=== PATIENT | female | born 1990 | race Two or more races ===

== ENCOUNTER 2017-09-16 16:00 | Inpatient (IN) | payer MEDICAID ==
[~2017-09-16] VITALS: Ht 157.5 cm; Wt 90.7 kg
[2017-09-16] MEDS ORDERED: LACT. RINGERS/OXYTOCIN 20UNITS 1,000 ML IV SCH (16:49)
[2017-09-16] MEDS ORDERED: DERMOPLAST 60ML BOTTLE TOP PRN (17:00)
[2017-09-16] MEDS ORDERED: WITCH HAZEL-GLYCERIN PAD TOP PRN (17:00)
[2017-09-16] MEDS ORDERED: PHISODERM TOP SOLN 240ML BTL TOP PRN (17:00)
[2017-09-16] MEDS ORDERED: NALBUPHINE HCL 10 MG/1ml INJECTION IV PRN (17:00)
[2017-09-16] MEDS ORDERED: METHYLERGONOVINE MALEATE 0.2 MG/ML AMP IM PRN (17:00)
[2017-09-16] MEDS ORDERED: LIDOCAINE 2% (LOCAL ANESTH.) PF 5ml SDV ID ONE (17:00)
[2017-09-16] MEDS ORDERED: ceFAZolin 1GM/100ML 100 ML IV ONE ×2 (17:15→17:17)
[2017-09-16 17:51] LABS: Basophils # (auto) 0 uL; Eosinophils # (auto) 0.1 uL; Monocytes # (auto) 0.5 uL
[2017-09-16 17:53] LABS: Basophils % (auto) 0.2 % (0.0-2.0); Eosinophils % (auto) 1.6 % (0.0-7.0); Hematocrit 30.3 % (36.0-46.0); Hemoglobin 9.8 g/dL (12.2-16.2); Lymphocytes # (auto) 1.4 uL; Lymphocytes % (auto) 22.2 % (10.0-50.0); Mean Corpuscular Hemoglobin 25.3 pg (28.0-32.0); Mean Corpuscular Hgb Conc. 32.5 g/dL (32.0-36.0); Mean Corpuscular Volume 77.8 fL (80.0-100.0); Monocytes % (auto) 7.9 % (0.0-12.0); Neutrophils # (auto) 4.4 uL; Neutrophils % (auto) 68.1 % (37.0-80.0); Nucleated Red Blood Cells % 0.1 %; Platelet Count (auto) 252 10^3/uL (140-450); Red Blood Cells 3.89 10^6/uL (4.0-5.20); Red Cell Distribution Width 16.3 % (11.8-14.3); White Blood Cell 6.5 10^3/uL (4.4-10.8)
[2017-09-16 18:05] LABS: INR 0.86 (0.9-1.15); Partial Thromboplastin Time 34.8 sec (22.64-33.71); Prothrombin Time 9.4 sec (9.37-12.3)
[2017-09-16 18:07] LABS: Urine Amorphous Crystal FEW /hpf (None Seen); Urine Bacteria NONE SEEN /hpf (None Seen); Urine Blood Negative /uL (Negative); Urine Mucus FEW (None Seen); Urine WBC 17 /hpf (0 - 5)
[2017-09-16 18:10] LABS: Albumin 2.2 g/dL (3.4-5.0); BUN/Creatinine Ratio 20.5; Calcium 8.4 mg/dL (8.5-10.1); Potassium 3.8 mmol/L (3.5-5.1)
[2017-09-16 18:13] LABS: Alcohol, Urine < 3.0 mg/dL (0-5); Amphetamine Screen, Urine POSITIVE (NEGATIVE); Barbiturate Scree,Urine NEGATIVE (NEGATIVE); Benzodiazephine Screen, Urine NEGATIVE (NEGATIVE); Cannabinoid Screen, Urine POSITIVE (NEGATIVE); Cocaine Screen, Urine NEGATIVE (NEGATIVE); Opiate Scree,Urine NEGATIVE (NEGATIVE)
[2017-09-16 18:13] LABS: Bilirubin, Total 0.2 mg/dL (0.2-1.0); Total Protein 6.3 g/dL (6.4-8.2)
[2017-09-16 18:38] LABS: Phencyclidine Screen, Urine NEGATIVE (NEGATIVE)
[2017-09-16] MEDS ORDERED: fentaNYL CITRATE 100 MCG/2 ML VL ONE ×2 (19:11→19:49)
[2017-09-16] MEDS ORDERED: BUPIVACAINE 0.75% INJ 10ML MPV SDV IJ ONE (19:14)
[2017-09-16] MEDS ORDERED: TETRACAINE 1% INJ 2 ML VIAL IJ ONE (19:18)
[2017-09-16] MEDS ORDERED: MORPHINE SULF(PF) 0.5MG/ML 10ML VIAL ONE (19:19)
[2017-09-16] MEDS ORDERED: SUCCINYLCHOLINE CHLORIDE 20 MG/ML 10ML VIAL IV ONE (19:20)
[2017-09-16] MEDS ORDERED: ROCURONIUM 10MG/ML 10ML VIAL IV ONE (19:50)
[2017-09-16] MEDS ORDERED: LACTATED RINGER'S 1,000 ML IV SCH (20:28)
[2017-09-16] MEDS ORDERED: ONDANSETRON HCL 4 MG/2 ML VIAL IV PRN (20:30)
[2017-09-16] MEDS ORDERED: hydrALAZINE HCL 20 MG/ML VL IV PRN (20:45)
[2017-09-16] MEDS: HYDROmorphone HCL 2 MG/ML VL IV PRN ×2 (20:45→20:58)
[2017-09-16] MEDS ORDERED: ONDANSETRON HCL 4 MG/2 ML VIAL IV ONE (20:45)
[2017-09-16] MEDS ORDERED: OFIRMEV IV PRN (22:15)
[2017-09-16] MEDS ORDERED: ACETAMINOPHEN IV 100 ML IV ONE (22:22)
[2017-09-16 22:35] VITALS: BP 129/69
[2017-09-16] MEDS: MORPHINE SULFATE 8mg/ml INJ SDV IV PRN (22:36)
[2017-09-16] MEDS: ACETAMINOPHEN IV 100 ML IV PRN (23:10)
[2017-09-17] MEDS ORDERED: KETOROLAC TROMETH 30 MG/ML 1ML VIAL IV SCH
[2017-09-17] MEDS: LACTATED RINGER'S 1,000 ML IV SCH ×2 (00:34→08:53)
[2017-09-17] MEDS ORDERED: TETANUS-DIPTH-ACEL PERTUSSIS 0.5ML SYRG IM ONE (00:45)
[2017-09-17] MEDS: ceFAZolin 1GM/100ML 50 ML IV SCH ×3 (01:10→16:31)
[2017-09-17] MEDS: MORPHINE SULFATE 8mg/ml INJ SDV IV PRN ×2 (02:33→08:53)
[2017-09-17 03:45] VITALS: BP 132/58
[2017-09-17 04:10] LABS: RPR Non Reactive (Non Reactive)
[2017-09-17] MEDS: ACETAMINOPHEN IV 100 ML IV PRN (05:00)
[2017-09-17 07:00] VITALS: BP 120/69
[2017-09-17 07:07] LABS: Basophils # (auto) 0 uL; Basophils % (auto) 0.2 % (0.0-2.0); Eosinophils # (auto) 0 uL; Eosinophils % (auto) 0.1 % (0.0-7.0); Hematocrit 28.3 % (36.0-46.0); Hemoglobin 9.4 g/dL (12.2-16.2); Lymphocytes # (auto) 1.2 uL; Lymphocytes % (auto) 10.2 % (10.0-50.0); Mean Corpuscular Hemoglobin 25.6 pg (28.0-32.0); Mean Corpuscular Hgb Conc. 33.2 g/dL (32.0-36.0); Mean Corpuscular Volume 77.2 fL (80.0-100.0); Monocytes # (auto) 0.4 uL; Monocytes % (auto) 3.6 % (0.0-12.0); Neutrophils % (auto) 85.9 % (37.0-80.0); Platelet Count (auto) 246 10^3/uL (140-450); Red Blood Cells 3.67 10^6/uL (4.0-5.20); Red Cell Distribution Width 16.6 % (11.8-14.3); White Blood Cell 11.6 10^3/uL (4.4-10.8)
[2017-09-17] MEDS ORDERED: PREN-96 PO (09:26)
[2017-09-17] MEDS ORDERED: HYDROcodone-ACET 5/325MG TAB PO PRN (11:00)
[2017-09-17 11:09] VITALS: BP 103/60
[2017-09-17 11:29] VITALS: BP 127/76
[2017-09-17] MEDS: IBUPROFEN 800 MG TAB PO PRN (13:04)
[2017-09-17] MEDS: DOCUSATE SOD 100 MG CAP PO SCH ×2 (13:04→22:32)
[2017-09-17 15:13] VITALS: BP 128/73
[2017-09-17] MEDS: SIMETHICONE 80 MG CHEWABLE TABLET PO PRN ×2 (15:40→22:32)
[2017-09-17 19:25] VITALS: BP 132/74
[2017-09-18 01:00] VITALS: BP 136/83
[2017-09-18 04:00] VITALS: BP 144/81
[2017-09-18] MEDS: HYDROcodone-ACET 5/325MG TAB PO PRN ×2 (07:22→19:08)
[2017-09-18 09:16] LABS: Basophils # (auto) 0 uL; Eosinophils # (auto) 0.1 uL; Hemoglobin 9.1 g/dL (12.2-16.2); Monocytes # (auto) 0.7 uL; Monocytes % (auto) 6.7 % (0.0-12.0); Neutrophils # (auto) 7.8 uL
[2017-09-18 09:19] LABS: Basophils % (auto) 0.2 % (0.0-2.0); Eosinophils % (auto) 1.3 % (0.0-7.0); Hematocrit 28.3 % (36.0-46.0); Lymphocytes # (auto) 2.2 uL; Lymphocytes % (auto) 20.2 % (10.0-50.0); Mean Corpuscular Hgb Conc. 32.2 g/dL (32.0-36.0); Mean Corpuscular Volume 77.8 fL (80.0-100.0); Neutrophils % (auto) 71.6 % (37.0-80.0); Platelet Count (auto) 246 10^3/uL (140-450); Red Blood Cells 3.64 10^6/uL (4.0-5.20); Red Cell Distribution Width 16.4 % (11.8-14.3); White Blood Cell 10.8 10^3/uL (4.4-10.8)
[2017-09-18] MEDS: IBUPROFEN 800 MG TAB PO PRN ×2 (09:50→23:07)
[2017-09-18] MEDS: DOCUSATE SOD 100 MG CAP PO SCH ×2 (09:50→23:05)
[2017-09-18 10:40] VITALS: BP 132/82
[2017-09-18 15:10] VITALS: BP 106/62
[2017-09-18 19:00] VITALS: BP 129/64
[2017-09-18 23:00] VITALS: BP 126/89
[2017-09-19 04:00] VITALS: BP 137/79
[2017-09-19 06:45] VITALS: BP 129/77
[2017-09-19 10:50] VITALS: BP 141/80
[2017-09-19] MEDS: DOCUSATE SOD 100 MG CAP PO SCH (11:59)
[2017-09-19 15:00] VITALS: BP 121/70
== END 2017-09-19 15:50 | disposition home or self-care (01) | DRG 540 ==
LOC: LDRP 16:00 → OBSVTOIN 16:00 → LDRP 16:54
PROVIDERS: ADMIT Specialist; ATTEND Specialist
PROC: 10D00Z1 Extraction of Products of Conception, Low, Open Approach (ICD-10-PCS; principal; 2017-09-16 19:15)
DX: O69.81X0 Labor and delivery complicated by cord around neck, without compression, not applicable or unspecified (principal); O98.82 Other maternal infectious and parasitic diseases complicating childbirth; O99.324 Drug use complicating childbirth; F19.10 Other psychoactive substance abuse, uncomplicated; A74.9 Chlamydial infection, unspecified; O77.0 Labor and delivery complicated by meconium in amniotic fluid; Z37.0 Single live birth; O42.02 Full-term premature rupture of membranes, onset of labor within 24 hours of rupture; Z3A.40 40 weeks gestation of pregnancy; Z91.19 Patient's noncompliance with other medical treatment and regimen; Z88.8 Allergy status to other drugs, medicaments and biological substances
CPT/HCPCS: 36415; 51702; 59025; 80053; 80307; 81001; 81002; 85025; 85610; 85730; 86592; 86850; 86900; 86901; 90472; 90715; 96361; 96365; 96366; 96374; 96375; J0131; J0330; J0690; J2270; J3490